=== PATIENT | male | born 1995 | race Two or more races ===

== ENCOUNTER 2024-02-25 03:22 | Inpatient (IN) | payer OTHER ==
[2024-02-25] VITALS (7 sets, daily range): BP systolic 112–129; BP diastolic 74–80; PULSE 71–83; RESP 16–18; TEMP 97.8–98.2; O2SAT 82–98
[~2024-02-25] VITALS: Ht 167.6 cm; Wt 77.9 kg
--- NOTE | 2024-02-25 03:48 | ED.PDOC ---
Musculoskeletal HPI Comments 28-year-old male who came to ER for right leg pain. Patient does have history of diabetes but has poor compliance to his medications. For the past 2 weeks patient has been having right lower leg pain, described as throbbing, anterior located, radiating down to his right foot. He denies any recent trauma. No swelling noted. No fever. Chief Complaint: Lower extremity Time Seen by MD: 03:47 Reviewed Notes: Nurses Notes Information Source: Patient Mode of Arrival: Ambulatory Location: Right Extremity Location: Leg Timing: Weeks (2) Prehospital treatment: None Severity: Moderate Able to Move Extremity: Yes Bear Weight: Limited Pain: Moderate Hand Dominance: Right Mechanism: Spontaneous Circumstances: Spontaneous Onset of Symptoms: Spontaneous Symptoms: Pain Associated signs and symptoms: Leg pain (right) Past Medical History PAST MEDICAL HISTORY: DM Surgical History: Denies all surgeries Family History Family History: Reviewed,noncontributory to illness Social History Smoker: Non-Smoker Alcohol: Denies ETOH Use Drugs: Denies Drug Use Lives In: Home Constitutional: denies: chills, diaphoresis, fatigue, fever, malaise, sweats, weakness, others EENTM: denies: blurred vision, double vision, ear bleeding, ear discharge, ear drainage, ear pain, ear ringing, eye pain, eye redness, hearing loss, mouth pain, mouth swelling, nasal discharge, nose bleeding, nose congestion, nose pain, photophobia, tearing, throat pain, throat swelling, voice changes, others Respiratory: denies: cough, hemoptysis, orthopnea, SOB at rest, shortness of breath, SOB with excertion, stridor, wheezing, others Cardiovascular: denies: chest pain, dizzy spells, diaphoresis, Dyspnea on exertion, edema, irregular heart beat, left arm pain, lightheadedness, palpitations, PND, syncope, others Gastrointestinal: denies: abdomen distended, abdominal pain, blood streaked bowels, constipated, diarrhea, dysphagia, difficulty swallowing, hematemesis, melena, nausea, poor appetite, poor fluid intake, rectal bleeding, rectal pain, vomiting, others Genitourinary: denies: burning, dysuria, flank pain, frequency, hematuria, incontinence, penile discharge, penile sore, pain, testicle pain, testicle swelling, urgency, others Neurological: denies: dizziness, fainting, headache, left sided numbness, left sided weakness, numbness, paresthesia, pre-existing deficit, right sided numbness, right sided weakness, seizure, speech problems, tingling, tremors, weakness, others Musculoskeletal: reports: muscle pain (Right lower leg pain); denies: back pain, gout, joint pain, joint swelling, muscle stiffness, neck pain, others Integumetry: denies: bruises, change in color, change in hair/nails, dryness, laceration, lesions, lumps, rash, wounds, others Allergic/Immunocompromised: denies: Difficulty Healing, Frequent Infections, Hives, Itching, others Hematologic/Lymphatic: denies: anemia, blood clots, easy bleeding, easy bruising, swollen glands, others Endocrine: denies: excessive hunger, excessive sweating, excessive thirst, excessive urination, flushing, intolerance to cold, intolerance to heat, unexplained weight gain, unexplained weight loss, others Psychiatric: denies: anxiety, bipolar disorder, depression, hopeless, panic disorder, schizophrenia, sleepless, suicidal, others Physical Exam General Appearance: No Apparent Distress, Normal HEENT: Normal ENT Inspection, Pharynx Normal, TMs Normal Neck: Full Range of Motion, Non-Tender, Normal, Normal Inspection Respiratory: Chest Non-Tender, Lungs Clear, No Accessory Muscle Use, No Respiratory Distress, Normal Breath Sounds Cardiovascular: No Edema, No JVD, No Murmur, No Gallop, Normal Peripheral Pulses, Regular Rate/Rhythm Breast Exam: Deferred Gastrointestinal: No Organomegaly, Non Tender, No Pulsatile Mass, Normal Bowel Sounds, Soft Genitalia: Deferred Pelvic: Deferred Rectal: Deferred Extremities: No calf tenderness, Normal capillary refill, Normal inspection, Normal range of motion, Non-tender, No pedal edema Musculoskeletal : Apperance: Normal Neurologic: Alert, forming tube selector II-XII nml as Tested, No Motor Deficits, Normal Affect, Normal Mood, No Sensory Deficits Cerebellar Function: Normal Reflexes: Normal Skin: Dry, Normal Color, Warm Lymphatic: No Adenopathy Was a procedure done? Was a procedure done?: No Differential Diagnosis EXT Differential Diagnosis: Sprain, Contusion, Strain, Neurovascular injury X-Ray, Labs, Meds, VS Vital Signs Date Time Temp Pulse Resp B/P (MAP) Pulse Ox O2 Delivery O2 Flow Rate FiO2 02/25/24 03:47 97.5 86 18 136/79 (98) 98 Lab Test 02/25/24 03:55 02/25/24 03:41 Range/Units White Blood Count 8.1 4.4-10.8 10^3/uL Red Blood Count 6.05 H 4.5-5.90 10^6/uL Hemoglobin 18.0 H 13.5-17.5 g/dL Hematocrit 51.4 41.0-53.0 % Mean Corpuscular Volume 85.0 80.0-100.0 fL Mean Corpuscular Hemoglobin 29.7 28.0-32.0 pg Mean Corpuscular Hemoglobin Concent 35.0 32.0-36.0 g/dL Red Cell Distribution Width 13.1 11.8-14.3 % Platelet Count 190 140-450 10^3/uL Mean Platelet Volume 10.5 6.9-10.8 fL Neutrophils (%) (Auto) 54.0 37.0-80.0 % Lymphocytes (%) (Auto) 33.3 10.0-50.0 % Monocytes (%) (Auto) 9.2 0.0-12.0 % Eosinophils (%) (Auto) 3.0 0.0-7.0 % Basophils (%) (Auto) 0.5 0.0-2.0 % Neutrophils # (Auto) 4.4 1.6-8.6 10 ^3/uL Lymphocytes # (Auto) 2.7 0.4-5.4 10 ^3/uL Monocytes # (Auto) 0.7 0-1.3 10 ^3/uL Eosinophils # (Auto) 0.2 0-0.8 10 ^3/uL Basophils # (Auto) 0 0-0.2 10 ^3/uL Nucleated Red Blood Cells 0.3 % Sodium Level 133 L 136-145 mmol/L Potassium Level 4.2 3.5-5.1 mmol/L Chloride Level 97 L 98-107 mmol/L Carbon Dioxide Level 30 20-31 mmol/L Anion Gap 6 5-15 Blood Urea Nitrogen 13 9-23 mg/dL Creatinine 0.96 0.700-1.30 mg/dL Glomerular Filtration Rate Calc 109 >90 mL/min BUN/Creatinine Ratio 13.5 10.0-20.0 Serum Glucose 330 H 74-106 mg/dL Calcium Level 10.3 8.7-10.4 mg/dL POC Glucose 367 H 70-106 mg/dl Time of 1ST Reevaluation: 03:44 Reevaluation 1ST: Unchanged Patient Education/Counseling: Diagnosis, Treatment Family Education/Counseling: Diagnosis, Treatment Departure 1 Departure Time of Disposition: 05:40 (Patient with uncontrolled diabetes and likely suffering from neuropathy. We will admit patient for further workup and initiation of diabetes control medication) Impression: Primary Impression: Uncontrolled diabetes mellitus Qualified Codes: E11.65 - Type 2 diabetes mellitus with hyperglycemia Disposition: ADMITTED INPATIENT Admit to: Med Surg Condition: Serious Critical Care Note Critical Care Time?: No Stability Stability form required: No Heart Score Heart Score: Heart Score Response (Comments) Value History N/A 0 EKG N/A 0 Age N/A 0 Risk Factors N/A 0 Troponin N/A 0 Total 0 I personally scribed for NICOLE HERNANDEZ MD ([email or web address]) on 02/25/24 at 03:47. Electronically submitted by Jose Cruz Kim ([email or web address]). NICOLE HERNANDEZ MD Feb 25, 2024 03:47
[2024-02-25 04:17] LABS: Basophils # (auto) 0 10 ^3/uL (0-0.2); Eosinophils # (auto) 0.2 10 ^3/uL (0-0.8); Lymphocytes # (auto) 2.7 10 ^3/uL (0.4-5.4); Monocytes % (auto) 9.2 % (0.0-12.0); Red Cell Distribution Width 13.1 % (11.8-14.3)
[2024-02-25 04:19] LABS: Basophils % (auto) 0.5 % (0.0-2.0); Hematocrit 51.4 % (41.0-53.0); Lymphocytes % (auto) 33.3 % (10.0-50.0); Mean Corpuscular Hemoglobin 29.7 pg (28.0-32.0); Monocytes # (auto) 0.7 10 ^3/uL (0-1.3); Neutrophils # (auto) 4.4 10 ^3/uL (1.6-8.6); Nucleated Red Blood Cells % 0.3 %; Platelet Count (auto) 190 10^3/uL (140-450); Red Blood Cells 6.05 10^6/uL (4.5-5.90); White Blood Cell 8.1 10^3/uL (4.4-10.8)
[2024-02-25 04:35] LABS: Anion Gap 6 (5-15); Carbon Dioxide 30 mmol/L (20-31); Chloride 97 mmol/L (98-107); Potassium 4.2 mmol/L (3.5-5.1); Sodium 133 mmol/L (136-145)
[2024-02-25 04:36] LABS: Calcium 10.3 mg/dL (8.7-10.4)
[2024-02-25 04:41] LABS: BUN/Creatinine Ratio 13.5 (10.0-20.0); Blood Urea Nitrogen 13 mg/dL (9-23); Glucose 330 mg/dL (74-106)
[2024-02-25 07:01] LABS: Urine Bacteria None Seen /hpf (None Seen)
[2024-02-25 07:21] LABS: Urine Blood Negative /uL (Negative); Urine Clarity Clear (Clear); Urine Color Light-Yellow (Yellow); Urine Protein, UAD Negative (Negative); Urine Specific Gravity 1.042 (1.001-1.035); Urine Urobilinogen Normal (Negative); Urine WBC 2 /hpf (0 - 3)
[2024-02-25] MEDS: SODIUM CHLORIDE 0.9% 1,000 ML IV ONE (07:46)
[2024-02-25] MEDS ORDERED: ACETAMINOPHEN 325 MG TAB PO PRN ×2 (09:45)
[2024-02-25] MEDS ORDERED: IBUPROFEN 800 MG TAB PO ONE (09:45)
[2024-02-25] MEDS ORDERED: DEXTROSE (50%) 50ML SYRG IV PRN (09:45)
--- NOTE | 2024-02-25 09:49 | DVHHP2 ---
History of Present Illness Reason for Visit: Right leg pain rule out DVT History of Present Illness This is a 28-year-old male with history of type 2 DM presents to ED with chief complaint of right leg pain x2 weeks. He describes right leg pain as throbbing and radiating down to his right foot. He denied recent injury or trauma to his leg, had never experienced this before. He is concerned about his pain and would like to be further evaluated and treated. The patient denies fever, chills, headache, dizziness, palpitation, chest pain, shortness of breath, nausea, vomiting, abdominal pain, and other associated symptoms. The patient will be admitted under hospitalist care to the medical-surgical unit plan has been discussed with the patient and primary RN in which all questions concerns have been addressed. Endocrine: Diabetes Past Surgical History: None Family History: None Smoke: No ALCOHOL: none Drugs: None Lives: with Family Domestic Violence: Neg Review of Systems Musculoskeletal: leg pain (Right leg pain) Medications Current Medications Medications Dose Ordered Sig/Mello Route Start Time Stop Time Status Last Admin Dose Admin Acetaminophen 650 mg Q6HP PRN PO 02/25/24 09:45 UNV Diagnostic Test (Pha) 1 strip ACHS 02/25/24 11:30 UNV Insulin Human Regular ACHS SC 02/25/24 11:30 UNV Dextrose 50 ml UD PRN IV 02/25/24 09:45 UNV Ibuprofen 800 mg BID PO 02/25/24 10:00 UNV Exam Vital Signs Vital Signs Date Time Temp Pulse Resp B/P (MAP) Pulse Ox O2 Delivery O2 Flow Rate FiO2 02/25/24 08:39 97.8 82 16 129/76 (93) 82 97.8 02/25/24 07:41 Room Air 02/25/24 07:37 0 21 General Appearance: Alert, Oriented X3, Cooperative, No acute distress HEENT: Atraumatic, PERRLA, Mucous membr. moist/pink Respiratory: Clear to auscultation, Normal air movement Cardiovascular: Normal S1, Normal S2 Abdominal: Normal bowel sounds, Soft, No tenderness, No hepatospenomegaly Extremities: No clubbing, No cyanosis, No edema, Normal pulses, No tenderness/swelling Skin: No rashes, No breakdown Neuro: Normal gait, Normal speech, Strength at 5/5 X4 ext, Normal tone, Sensation intact, Cranial nerves 3-12 NL Psych/Mental Status: Mental status NL Labs/Xrays Labs Test 02/25/24 06:47 02/25/24 03:55 02/25/24 03:41 Range/Units Urine Color Light-yellow Yellow Urine Clarity Clear Clear Urine pH 5.0 5.0-9.0 Urine Specific [place] 1.042 H 1.001-1.035 Urine Protein Negative Negative Urine Ketones 2+ H Negative Urine Blood Negative Negative /uL Urine Nitrite Negative Negative Urine Bilirubin Negative Negative Urine Urobilinogen Normal Negative mg/dL Urine Leukocyte Esterase Trace Negative /uL Urine RBC 2 0 - 3 /hpf Urine WBC 2 0 - 3 /hpf Urine Squamous Epithelial Cells Few <5 /hpf Urine Bacteria None seen None Seen /hpf Urine Glucose 4+ H Normal mg/dL White Blood Count 8.1 4.4-10.8 10^3/uL Red Blood Count 6.05 H 4.5-5.90 10^6/uL Hemoglobin 18.0 H 13.5-17.5 g/dL Hematocrit 51.4 41.0-53.0 % Mean Corpuscular Volume 85.0 80.0-100.0 fL Mean Corpuscular Hemoglobin 29.7 28.0-32.0 pg Mean Corpuscular Hemoglobin Concent 35.0 32.0-36.0 g/dL Red Cell Distribution Width 13.1 11.8-14.3 % Platelet Count 190 140-450 10^3/uL Mean Platelet Volume 10.5 6.9-10.8 fL Neutrophils (%) (Auto) 54.0 37.0-80.0 % Lymphocytes (%) (Auto) 33.3 10.0-50.0 % Monocytes (%) (Auto) 9.2 0.0-12.0 % Eosinophils (%) (Auto) 3.0 0.0-7.0 % Basophils (%) (Auto) 0.5 0.0-2.0 % Neutrophils # (Auto) 4.4 1.6-8.6 10 ^3/uL Lymphocytes # (Auto) 2.7 0.4-5.4 10 ^3/uL Monocytes # (Auto) 0.7 0-1.3 10 ^3/uL Eosinophils # (Auto) 0.2 0-0.8 10 ^3/uL Basophils # (Auto) 0 0-0.2 10 ^3/uL Nucleated Red Blood Cells 0.3 % Sodium Level 133 L 136-145 mmol/L Potassium Level 4.2 3.5-5.1 mmol/L Chloride Level 97 L 98-107 mmol/L Carbon Dioxide Level 30 20-31 mmol/L Anion Gap 6 5-15 Blood Urea Nitrogen 13 9-23 mg/dL Creatinine 0.96 0.700-1.30 mg/dL Glomerular Filtration Rate Calc 109 >90 mL/min BUN/Creatinine Ratio 13.5 10.0-20.0 Serum Glucose 330 H 74-106 mg/dL Calcium Level 10.3 8.7-10.4 mg/dL POC Glucose 367 H 70-106 mg/dl Assessment/Plan Assessment/Plan Right leg pain rule out DVT Admit to med surge unit Reviewed urinalysis which is normal Reviewed BMP which shows elevated blood glucose 330 Reviewed CBC within normal limits Ordered right lower extremity ultrasound to rule out DVT pending result Ordered ibuprofen now and b.i.d. If positive for DVT we will need to order anticoagulants Type 2 DM Regular insulin mild SS a.c. and HS 1800 ADA diet Accu-Cheks per protocol Continue to monitor No med to reconcile Prophylaxis not indicated patient ambulatory Labs in a.m. Discussed plan of care with the patient in which all questions concerns have been addressed Plan discussed with: Patient My Orders Orders - CANDACE FRIEDMAN MACHINE MAINTENANCE TECHNICIAN Procedure Category Date Status Time Rt Lower Dvt 02/25/24 Logged 09:37 Admit ADMIT 02/25/24 Transmitted 09:37 Complete Blood Count LAB 02/26/24 Verified 04:00 Comprehensive LAB 02/26/24 Verified Metabolic Panel 04:00 Condition: Fair LUCY 02/25/24 In Process 09:37 Acetaminophen Tablet PHA 02/25/24 Logged (Tylenol Tablet) 09:45 BRP LUCY 02/25/24 In Process 09:37 Glucose Blood PHA 02/25/24 Logged (Accu-Chek Comfort 11:30 Insulin R (Human) PHA 02/25/24 Logged (Insulin R) 11:30 Dextrose 50% Syringe PHA 02/25/24 Logged 09:45 Ibuprofen Tablet PHA 02/25/24 Transmitted (Motrin Tablet) 09:45 Ibuprofen Tablet PHA 02/25/24 Transmitted (Motrin Tablet) 10:00 Pharmacy [facility] 02/25/24 Verified Clarification: 09:43 2 Gm Sodium Diet DIET 02/25/24 Verified Lunch Acetaminophen Tablet PHA 02/25/24 Verified (Tylenol Tablet) 09:45 Date of Service: Feb 25, 2024 Billing Provider: CANDACE FRIEDMAN Common Visit Codes: [id number] INP/OBS CARE (HIGH) CANDACE FRIEDMAN Feb 25, 2024 09:49
[2024-02-25] MEDS: IBUPROFEN 800 MG TAB PO SCH (10:07)
--- NOTE | 2024-02-25 10:32 | DVH ---
Right lower extremity venous duplex Clinical History: right leg pain Comparison: None Technique: Duplex Doppler evaluation of the deep venous system of the right lower extremity from the common femo ral vein to the popliteal vein including color Doppler and spectral/pulsed waveform analysis was perf ormed. Findings: The common femoral vein demonstrates appropriate compressibility and waveform variability . There is compressibility/patency of the great saphenous vein at the proximal thigh . The femoral vein demonstrates appropriate compressibility and waveform variability . The deep femoral vein demonstrates appropriate compressibility and waveform variability . The popliteal vein demonstrates appropriate compressibility and waveform variability . There is normal compressibility at the tibioperoneal trunk. Impression: No right femoropopliteal venous thrombosis.
[2024-02-25] MEDS ORDERED: METF-370 PO (10:39)
[2024-02-25] MEDS: InsuLIN REG 1unit/0.01ml Soln (100units/ml) SC SCH (11:18)
[2024-02-25] MEDS: ACCU-CHEK COMFORT CURVE STRIP VI SCH (11:21)
[2024-02-26 05:00] VITALS: BP 106/66; PULSE 82; RESP 18; TEMP 97.6; O2SAT 97
[2024-02-26 06:27] LABS: Basophils # (auto) 0 10 ^3/uL (0-0.2); Basophils % (auto) 0.6 % (0.0-2.0); Eosinophils # (auto) 0.1 10 ^3/uL (0-0.8); Eosinophils % (auto) 2.4 % (0.0-7.0); Hematocrit 50.5 % (41.0-53.0); Hemoglobin 17.3 g/dL (13.5-17.5); Lymphocytes # (auto) 1.9 10 ^3/uL (0.4-5.4); Lymphocytes % (auto) 32.9 % (10.0-50.0); Mean Corpuscular Hemoglobin 29.1 pg (28.0-32.0); Mean Corpuscular Hgb Conc. 34.3 g/dL (32.0-36.0); Mean Corpuscular Volume 84.7 fL (80.0-100.0); Monocytes # (auto) 0.6 10 ^3/uL (0-1.3); Monocytes % (auto) 9.9 % (0.0-12.0); Neutrophils # (auto) 3.1 10 ^3/uL (1.6-8.6); Neutrophils % (auto) 54.2 % (37.0-80.0); Nucleated Red Blood Cells % 0.2 %; Platelet Count (auto) 160 10^3/uL (140-450); Red Blood Cells 5.96 10^6/uL (4.5-5.90); White Blood Cell 5.6 10^3/uL (4.4-10.8)
[2024-02-26 06:48] LABS: Alanine Aminotransferase 35 U/L (7-40); Albumin 4.2 g/dL (3.2-4.8); Alkaline Phosphatase 80 U/L (46-116); Anion Gap 6 (5-15); Aspartate Aminotransferase 18 U/L (13-40); BUN/Creatinine Ratio 12.4 (10.0-20.0); Blood Urea Nitrogen 12 mg/dL (9-23); Calcium 9.8 mg/dL (8.7-10.4); Carbon Dioxide 28 mmol/L (20-31); Chloride 104 mmol/L (98-107); Glucose 259 mg/dL (74-106); Potassium 4.2 mmol/L (3.5-5.1); Sodium 138 mmol/L (136-145)
[2024-02-26 06:49] LABS: Bilirubin, Total 0.7 mg/dL (0.2-1.0)
[2024-02-26 08:00] VITALS: PULSE 63; RESP 18
[2024-02-26 09:00] VITALS: BP 119/66; PULSE 63; RESP 16; TEMP 97.4; O2SAT 96
--- NOTE | 2024-02-26 11:11 | DVHDSRES ---
Discharge Summary Date of Admission Resident Creating Document: CAIT SNYDER RESDIENT Feb 25, 2024 at 09:37 Date of Discharge: Feb 26, 2024 Admitting Diagnosis Right leg pain/rule out DVT Labs/Diagnostic Data: Laboratory Results Test 02/26/24 05:41 02/26/24 05:26 02/25/24 06:47 POC Glucose 283 mg/dl (70-106) White Blood Count 5.6 10^3/uL (4.4-10.8) Red Blood Count 5.96 10^6/uL (4.5-5.90) Hemoglobin 17.3 g/dL (13.5-17.5) Hematocrit 50.5 % (41.0-53.0) Mean Corpuscular Volume 84.7 fL (80.0-100.0) Mean Corpuscular Hemoglobin 29.1 pg (28.0-32.0) Mean Corpuscular Hemoglobin Concent 34.3 g/dL (32.0-36.0) Red Cell Distribution Width 13.0 % (11.8-14.3) Platelet Count 160 10^3/uL (140-450) Mean Platelet Volume 10.5 fL (6.9-10.8) Neutrophils (%) (Auto) 54.2 % (37.0-80.0) Lymphocytes (%) (Auto) 32.9 % (10.0-50.0) Monocytes (%) (Auto) 9.9 % (0.0-12.0) Eosinophils (%) (Auto) 2.4 % (0.0-7.0) Basophils (%) (Auto) 0.6 % (0.0-2.0) Neutrophils # (Auto) 3.1 10 ^3/uL (1.6-8.6) Lymphocytes # (Auto) 1.9 10 ^3/uL (0.4-5.4) Monocytes # (Auto) 0.6 10 ^3/uL (0-1.3) Eosinophils # (Auto) 0.1 10 ^3/uL (0-0.8) Basophils # (Auto) 0 10 ^3/uL (0-0.2) Nucleated Red Blood Cells 0.2 % Sodium Level 138 mmol/L (136-145) Potassium Level 4.2 mmol/L (3.5-5.1) Chloride Level 104 mmol/L (98-107) Carbon Dioxide Level 28 mmol/L (20-31) Anion Gap 6 (5-15) Blood Urea Nitrogen 12 mg/dL (9-23) Creatinine 0.97 mg/dL (0.700-1.30) Glomerular Filtration Rate Calc 108 mL/min (>90) BUN/Creatinine Ratio 12.4 (10.0-20.0) Serum Glucose 259 mg/dL (74-106) Calcium Level 9.8 mg/dL (8.7-10.4) Total Bilirubin 0.7 mg/dL (0.2-1.0) Aspartate Amino Transferase (AST) 18 U/L (13-40) Alanine Aminotransferase (ALT) 35 U/L (7-40) Alkaline Phosphatase 80 U/L (46-116) Total Protein 7.0 g/dL (5.7-8.2) Albumin 4.2 g/dL (3.2-4.8) Urine Color Light-yellow (Yellow) Urine Clarity Clear (Clear) Urine pH 5.0 (5.0-9.0) Urine Specific [place] 1.042 (1.001-1.035) Urine Protein Negative (Negative) Urine Ketones 2+ (Negative) Urine Blood Negative /uL (Negative) Urine Nitrite Negative (Negative) Urine Bilirubin Negative (Negative) Urine Urobilinogen Normal mg/dL (Negative) Urine Leukocyte Esterase Trace /uL (Negative) Urine RBC 2 /hpf (0 - 3) Urine WBC 2 /hpf (0 - 3) Urine Squamous Epithelial Cells Few /hpf (<5) Urine Bacteria None seen /hpf (None Seen) Urine Glucose 4+ mg/dL (Normal) Other Laboratory Tests 02/26/24 05:26 Brief Hx & Hospital Course: This is a 28-year-old male with a history of type 2 DM who presented to the ED with a chief complaint of right leg pain for 2 weeks. He describes the pain as throbbing and radiating down to his right foot. He denied recent injury or trauma to his leg and had never experienced this before. The pain increased with mobility. The patient denies fever, chills, headache, dizziness, palpitations, chest pain, shortness of breath, nausea, vomiting, abdominal pain, and other associated symptoms. PMHx: Diabetes mellitus type 2 PSHx: Noncontributory Family History: Hypertension and diabetes in grandmother Social History: Lives with his , denies smoking, drinks occasionally, denies any other drug use Home Medication: Metformin 500 mg b.i.d. Allergic History: Noncontributory On physical examination during admission, there was mild tenderness of the right lower limb. Vital signs were significant for BP at 106/66, otherwise within normal limits. Lab studies were significant for raised glucose at 320 mg/dL, sodium 133 mEq/L. The patient was admitted for evaluation of right leg pain and possible DVT. He was given 1 L normal saline, insulin regular according to sliding scale, and ibuprofen. Doppler ultrasound of the lower limb was performed and showed no abnormality. On 02/26/2024, the patient was feeling better and had mild right leg pain. The patient was hemodynamically stable. The discharge plan was discussed with the patient, and he was recommended to follow up with the PCP/discharge clinic within 1 week after discharge. Operations or Procedures [place] [id number] Ph: [phone] DIAGNOSTIC IMAGING Diagnostic Imaging Report : [id number] Signed PATIENT: JOHN ZHANG ACCT: [id number] UNIT: [id number] : 1995 LOC: OVERFLOW ROOM / BED: [address] [place] [address] AGE / SEX: 28 / M ADM STATUS: ADM IN SERVICE 0937 ORDERING PHYSICIAN: CANDACE FRIEDMAN LOADING UNIT OPERATOR POWDER CHARGING PROCEDURE(s): RLDVT - RT Lower DVT REASON: right leg pain ORDER NUMBER(s): [id number], ACCESSION NUMBER(s): [id number] Right lower extremity venous duplex Clinical History: right leg pain Comparison: None Technique: Duplex Doppler evaluation of the deep venous system of the right lower extremity from the common femoral vein to the popliteal vein including color Doppler and spectral/pulsed waveform analysis was performed. Findings: The common femoral vein demonstrates appropriate compressibility and waveform variability . There is compressibility/patency of the great saphenous vein at the proximal thigh . The femoral vein demonstrates appropriate compressibility and waveform variability . The deep femoral vein demonstrates appropriate compressibility and waveform variability . The popliteal vein demonstrates appropriate compressibility and waveform variability . There is normal compressibility at the tibioperoneal trunk. Impression: No right femoropopliteal venous thrombosis. ATED BY: EDINSON GALLEGOS MD DICTATED DATE/TIME: 02/25/24 1029 SIGNED BY: EDINSON GALLEGOS MD SIGNED DATE/TIME: 02/25/24 1029 CC: Condition at Discharge: Good Final Diagnosis/Problems List Right leg pain, likely due to trauma/muscle cramps Uncontrolled Diabetes type 2 Hyponatremia Hypotension Discharge Disposition: Home Discharge Statement: "Patient was advised to return to the ER or call 911 if any headaches, dizziness, shortness of breath, chest pain, abdominal pain, bleeding, fevers, or worsening of medical condition. Patient was counseled about treatment plan, medications, possible side effects, patientverbalized understanding. All questions were answered to the best of my ability. This discharge took greater then 30 minutes in planning, reviewing documentation, counseling the patient, and discussing with other team members." ASSESSMENT ASSESSMENT Assessment Date of Service: Feb 26, 2024 Billing Provider: CARLOTA GERBER DO Common Visit Codes: 88117-TAH/OBS DISCH DAY >30min CAIT SNYDER RESDIENT Feb 26, 2024 11:11 CARLOTA GERBER DO Feb 27, 2024 22:27
[2024-02-26 13:00] VITALS: BP 122/69; PULSE 81; RESP 18; TEMP 98.4; O2SAT 95
[2024-02-26] MEDS ORDERED: NAP500T PO (13:49)
[2024-02-26 15:00] VITALS: BP 122/69; PULSE 81; RESP 18; TEMP 98.4; O2SAT 95
[2024-02-27] MEDS ORDERED: INSULIN LANTUS (GLARGINE) 1 /0.01ml (100units/ml) SC SCH (10:00)
== END 2024-02-26 16:07 | disposition home or self-care (01) | DRG 58 ==
LOC: ER 03:22 → OVERFLOW 09:37 → CENTRAL 18:35
PROVIDERS: ATTEND Internal Medicine
DX: R25.2 Cramp and spasm (principal); E87.1 Hypo-osmolality and hyponatremia; I95.9 Hypotension, unspecified; E11.9 Type 2 diabetes mellitus without complications; T14.90XA Injury, unspecified, initial encounter; Z79.4 Long term (current) use of insulin; Z79.899 Other long term (current) drug therapy; X58.XXXA Exposure to other specified factors, initial encounter; Y93.89 Activity, other specified; Y92.89 Other specified places as the place of occurrence of the external cause; Y99.8 Other external cause status
CPT/HCPCS: 36415; 80048; 80053; 81001; 82962; 83036; 85025; 93971; G0378; J1815